=== PATIENT | female | born 1995 | race Caucasian/White ===

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

== ENCOUNTER → 2017-02-15 | Outpatient (CLI) | payer MEDICAID ==
--- NOTE | 2017-02-16 13:24 | Diagnostic Imaging Report ---
OB ultrasound. INDICATION: survey. COMPARISON: 11/28/2016. FINDINGS: heart rate is 152 beats per minutes. The placenta is anterior. There is no placenta previa. The cervix is partially shadowed, but appears to be long and closed. The posterior fossa and lateral ventricles appear normal in size. There is normal appearance of the four-chamber view, stomach, cord insertion, and two umbilical arteries. No hydronephrosis or cystic renal mass. The bladder is visualized and the spine appears grossly unremarkable. growth parameters are all around 20 weeks and 2 days. When compared to first trimester ultrasound dating, currently of 19 weeks and 5 days. IMPRESSION: Completed survey. Appropriate interval growth. Dictated by: Dictated on workstation # [id number]
== END ==
LOC: RAD 12:33
PROVIDERS: ATTEND Family Medicine
DX: Z36 Encounter for antenatal screening of mother (principal); Z3A.18 18 weeks gestation of pregnancy
CPT/HCPCS: 76805

== ENCOUNTER 2017-06-09 02:12 | Outpatient (CLI) | payer MEDICAID ==
[~2017-06-09] VITALS: Ht 156.2 cm; Wt 80.7 kg
[2017-06-09 02:26] VITALS: BP 118/68
[2017-06-09 02:30] VITALS: BP 118/68
[2017-06-09 02:36] LABS: BILIRUBIN,URINE NEGATIVE (NEGATIVE); KETONES,URINE NEGATIVE (NEGATIVE); LEUKOCYTE ESTERASE ,URINE 2+ (NEGATIVE); NITRITE,URINE NEGATIVE (NEGATIVE); PH,URINE 7 (5-9); PROTEIN,URINE NEGATIVE (NEGATIVE); UROBILINOGEN,URINE NORMAL (NORMAL)
[2017-06-09 02:48] LABS: WBC,URINE 0-2 /HPF
[2017-06-09] MEDS ORDERED: CEPHALEXIN 250 MG (KEFLEX) CAP PO ONE (03:45)
[2017-06-09] MEDS ORDERED: CEPH-507 PO (03:47)
--- NOTE | 2017-06-12 12:54 | Physician Query-Final Dx ---
SYED FIERRO 06/12/17 1254: Clinic Account Progress/Dx Physician Query: Please give diagnosis Date of Service Jun 09, 2017 at 02:12 ZHANG ROLLINS MD 06/28/17 1850: Clinic Account Progress/Dx DIAGNOSIS: Diagnosis Third Trimester Abdominal pain Lower extremity swelling SYED FIERRO Jun 12, 2017 12:54 ZHANG ROLLINS MD Jun 28, 2017 18:50
[2017-06-27] MEDS ORDERED: IBUP-1773 PO (08:16)
[2017-06-27] MEDS ORDERED: FERR-74 PO (08:16)
== END 2017-06-09 04:10 | disposition home or self-care (01) ==
LOC: WSo 02:12 → LDRP 02:13 → WSo 04:10
PROVIDERS: ATTEND Family Medicine
DX: O99.89 Other specified diseases and conditions complicating pregnancy, childbirth and the puerperium (principal); R10.9 Unspecified abdominal pain; M79.89 Other specified soft tissue disorders; Z3A.36 36 weeks gestation of pregnancy
CPT/HCPCS: 81000; 87088; 99213

== ENCOUNTER 2017-06-23 02:01 | Outpatient (CLI) | payer MEDICAID ==
[~2017-06-23] VITALS: Ht 156.2 cm; Wt 81.6 kg
[~2017-06-23 02:01] MED LIST changes: +CEPH-507 PO
[2017-06-23 02:10] VITALS: BP 128/78
[2017-06-23 02:19] LABS: BILIRUBIN,URINE NEGATIVE (NEGATIVE); KETONES,URINE 1+ (NEGATIVE); LEUKOCYTE ESTERASE ,URINE 3+ (NEGATIVE); NITRITE,URINE NEGATIVE (NEGATIVE); PH,URINE 7 (5-9); PROTEIN,URINE 2+ (NEGATIVE); UROBILINOGEN,URINE NORMAL (NORMAL)
[2017-06-23 02:27] LABS: WBC,URINE 25-50 /HPF
--- NOTE | 2017-06-26 11:21 | Physician Query-Final Dx ---
SYED FIERRO 06/26/17 1120: Clinic Account Progress/Dx Physician Query: Please give diagnosis Date of Service Jun 23, 2017 at 02:01 ARUN WILKES MD 06/27/17 0834: Clinic Account Progress/Dx DIAGNOSIS: Diagnosis 38 weeks gestation Leaking fluid, no evidence of SROM on exam SYED FIERRO Jun 26, 2017 11:20 ARUN WILKES MD Jun 27, 2017 08:34
== END 2017-06-23 04:50 | disposition home or self-care (01) ==
LOC: WSo 02:01 → LDRP 02:03 → WSo 04:50
PROVIDERS: ATTEND Family Medicine
DX: Z34.83 Encounter for supervision of other normal pregnancy, third trimester (principal)
CPT/HCPCS: 81000; 87088; 99214

== ENCOUNTER 2017-06-25 00:19 | Inpatient (IN) | payer MEDICAID ==
[2017-06-25] VITALS (53 sets, daily range): BP systolic 98–139; BP diastolic 51–90
[~2017-06-25] VITALS: Ht 154.9 cm; Wt 81.9 kg
[2017-06-25 03:29] LABS: BILIRUBIN,URINE NEGATIVE (NEGATIVE); KETONES,URINE NEGATIVE (NEGATIVE); LEUKOCYTE ESTERASE ,URINE 1+ (NEGATIVE); NITRITE,URINE NEGATIVE (NEGATIVE); PH,URINE 7 (5-9); PROTEIN,URINE 1+ (NEGATIVE); UROBILINOGEN,URINE NORMAL (NORMAL)
[2017-06-25] MEDS ORDERED: fentaNYL INJECTION 100 MCG/2 ML AMP IVP PRN (03:30)
[2017-06-25] MEDS ORDERED: SUFENTA 0.6MCG/ML BUPIVA 0.125 100 ML ONE (05:31)
[2017-06-25] MEDS ORDERED: D5 LR IV SOLUTION 1,000 ML IV SCH (05:33)
[2017-06-25] MEDS ORDERED: LACTATED RINGERS 1,000 ML IV ONE ×3 (06:15→08:00)
[2017-06-25 06:16] LABS: BASOPHILS % (AUTO) 0 % (0-10); EOSINOPHILS # (AUTO) 0.3 10^3/uL (0.0-0.3); EOSINOPHILS % (AUTO) 2 % (0-10); LYMPHOCYTES # (AUTO) 1.3 X 10^3 (1.0-4.0); LYMPHOCYTES % (AUTO) 10 % (12-44); MEAN CORPUSCULAR HEMOGLOBIN 29 PG (25-34); MEAN CORPUSCULAR HGB CONC 34 G/DL (32-36); MEAN CORPUSCULAR VOLUME 85 FL (80-99); MEAN PLATELET VOLUME 11.3 FL (7.4-10.4); MONOCYTES % (AUTO) 7 % (0-12); NEUTROPHILS # (AUTO) 11.3 X 10^3 (1.8-7.8); NEUTROPHILS % (AUTO) 81 % (42-75); PLATELET COUNT 181 10^3/uL (130-400); RED BLOOD COUNT 3.95 10^6/uL (4.35-5.85); RED CELL DISTRIBUTION WIDTH 14.4 % (10.0-14.5); WHITE BLOOD COUNT 13.9 10^3/uL (4.3-11.0)
[2017-06-25] MEDS ORDERED: LACTATED RINGERS 1,000 ML IV SCH (07:15)
[2017-06-25] MEDS ORDERED: METOCLOPRAMIDE INJ 10 MG/2 ML (REGLAN) IV PRN (07:15)
[2017-06-25] MEDS ORDERED: ONDANSETRON 4 MG/2 ML (SDV) Z0FRAN IV PRN (07:15)
[2017-06-25] MEDS ORDERED: NALOXONE 0.4 MG/ML 1 ML (NARCAN) VIAL IV PRN ×2 (07:15)
[2017-06-25] MEDS ORDERED: EPIDURAL (SUFENTA 0.6MCG/ML BUPIVA 0.125%) 100 ML BAG EPI SCH (07:15)
[2017-06-25] MEDS ORDERED: diphenhydrAMINE 50 MG/ML INJ (BENADRYL) IV PRN (07:15)
--- NOTE | 2017-06-25 08:54 | Diagnostic Imaging Report ---
INDICATION: Chest pain with . COMPARISON: None available. FINDINGS: The heart is enlarged, compatible with advanced . Perihilar central vascular indistinctness could relate to early interstitial pulmonary edema. No pulmonic consolidations or pleural effusions. No pneumothorax. IMPRESSION: 1. Cardiomegaly is compatible with advanced . Mild perihilar vascular indistinctness can be seen with early interstitial pulmonary edema. However, there is no josiah pulmonary edema or pleural effusions. Dictated by: Dictated on workstation # [id number]
--- NOTE | 2017-06-25 09:19 | History & Physical-OB ---
OB - Chief Complaint & HPI Date/Time Date of Admission: Date of Admission: Jun 25, 2017 at 5:32 am Time Seen by Provider: 08:45 Chief Complaint/History OB-Reason for Admission/Chief: Onset of Labor Hx : 3 Hx Para: 2 Expected Date of Delivery: Jul 07, 2017 Gestational Age in Weeks: 38 Gestational Age in Days: 2 History of Labs A neg, antibody neg, RI, HIV/HepB/RPR neg. GC/chlamydia neg. 1 hour glucola neg. GBS neg. Allergies and Home Medications Allergies Coded Allergies: amoxicillin (Verified Allergy, Mild, HIVES, 06/09/17) clavulanic acid (Verified Allergy, Mild, HIVES, 06/09/17) Home Medications Vit #76/Iron,Carb/FA 1 Each Tablet, 1 EACH PO DAILY, (Reported) OB - History Hx of Present Care: Yes Ultrasounds: Normal mid trimester US Obstetrical Complications: None Medical Complications: None Obstetrical History Hx : 3 Hx Para: 2 Hx # Term Pregnancies: 2 Hx # Pregnancies: 0 Number of Living Children: 2 Hx Termination: No Hx Total # of Abortions (Spona: 0 Hx Multiple Gestation: No Hx Ectopic : No Hx Stillbirth: No Hx Complication: No Hx Induced Hypertens: No Hx Maternal Gestational Diabet: No Hx Hemorrhage: No Delivery History Hx Dystocia: No Hx Forceps Assisted Delivery: No Hx Vacuum Extraction Assisted: No Hx Placenta Abnormality: No Hx Distress: No Hx Large For Gestational Age I: No Hx Small for Gestational Age I: No Hx Section: No Hx Vaginal Delivery Post C-Sec: No Hx Blood Disorders: No Adverse Rxn to Tranfusion: No Patient Past Medical History 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 Social History/Family History HIV/AIDS: No Recent Infectious Disease Expo: No Alcohol Use: Denies Use Recreational Drug Use: No Smoking Cessation: Current every day smoker Immunizations Hepatitis A: Yes Hepatitis B: Yes Tetanus Booster (TDap): Less than 5yrs Date of Influenza Vaccine: Sep 02, 2015 Rubella: immune GBS Status: Negative HBsAG: Negative OB - Admission Exam Physical Exam Date Seen by Provider: Jun 25, 2017 Time Seen by Provider: 08:45 Vitals: Vital Signs 06/25/17 06/25/17 06/25/17 06/25/17 01:00 07:56 08:20 08:25 Temp 99.3 Pulse 88 Resp 18 B/P (MAP) 108/66 Pulse Ox 98 O2 Delivery Room Air HEENT: NCAT Heart: Rhythm Normal (no murmur, regular rate) Lungs: Clear, Equal Abdomen: Gravid Extremities: Normal Cervical Dilatation: 5cm Membranes: Intact Labs Laboratory Tests Test 06/25/17 02:00 06/25/17 05:58 Range/Units Urine Color YELLOW Urine Clarity CLOUDY H Urine pH 7 5-9 Urine Specific [place] 1.010 L 1.016-1.022 Urine Protein 1+ H NEGATIVE Urine Glucose (UA) 3+ H NEGATIVE Urine Ketones NEGATIVE NEGATIVE Urine Nitrite NEGATIVE NEGATIVE Urine Bilirubin NEGATIVE NEGATIVE Urine Urobilinogen NORMAL NORMAL MG/DL Urine Leukocyte Esterase 1+ H NEGATIVE Urine RBC (Auto) 1+ H NEGATIVE Urine RBC RARE /HPF Urine WBC 2-5 /HPF Urine Squamous Epithelial Cells 2-5 /HPF Urine Crystals PRESENT H /LPF Urine Amorphous Sediment LARGE ODETTE PHOSPHATE H /LPF Urine Bacteria FEW H /HPF Urine Casts NONE /LPF Urine Mucus NEGATIVE /LPF Urine Culture Indicated YES White Blood Count 13.9 H 4.3-11.0 10^3/uL Red Blood Count 3.95 L 4.35-5.85 10^6/uL Hemoglobin 11.4 L 11.5-16.0 G/DL Hematocrit 34 L 35-52 % Mean Corpuscular Volume 85 80-99 FL Mean Corpuscular Hemoglobin 29 25-34 PG Mean Corpuscular Hemoglobin Concent 34 32-36 G/DL Red Cell Distribution Width 14.4 10.0-14.5 % Platelet Count 181 130-400 10^3/uL Mean Platelet Volume 11.3 H 7.4-10.4 FL Neutrophils (%) (Auto) 81 H 42-75 % Lymphocytes (%) (Auto) 10 L 12-44 % Monocytes (%) (Auto) 7 0-12 % Eosinophils (%) (Auto) 2 0-10 % Basophils (%) (Auto) 0 0-10 % Neutrophils # (Auto) 11.3 H 1.8-7.8 X 10^3 Lymphocytes # (Auto) 1.3 1.0-4.0 X 10^3 Monocytes # (Auto) 1.0 0.0-1.0 X 10^3 Eosinophils # (Auto) 0.3 0.0-0.3 10^3/uL Basophils # (Auto) 0.0 0.0-0.1 10^3/uL OB - Assessment/Plan/Diagnosis Assessment Assessment: active labor, other (chest pain) Plan Other Plan 1. Onset of labor at 38 weeks- expectant management 2. Chest pressure after epidural- EKG with some inverted t waves, no ST elevation or clear evidence of TX, troponin pending. CXR with no mediastinal widening or lung abnormalities. Blood pressure normal and equal in both arms. Exam unremarkable and chest pressure resolved by the time of finishing this note. Copy Copies To 1: ZHANG ROLLINS MD, BETHANY N MD Jun 25, 2017 9:19 am
[2017-06-25] MEDS ORDERED: OXYTOCIN/NORMAL SALINE 500 ML IV ONE (10:31)
--- NOTE | 2017-06-25 12:08 | OB Labor & Delivery Record ---
Vag Delivery Note Vag Delivery Note Date of Delivery: 06/25/17 Preoperative Diagnosis: Mariluz tristan a (20 /Para 3 / 2, Gestational Age (wks)38with 2 days Postoperative Diagnosis: Same Surgeon: ARUN WILKES Steam Box Hand: Rosio Doran, MS3 Anesthesia: Epidural Delivery Type: Findings: Viable male infant, apgars 8/9, weight 5#8 Lacerations: none Intact placenta with 3 vessel cord. No nuchal cord, body cord or shoulder dystocia Estimated Blood Loss: 200 ml Complications: None Condition: Stable Description of Procedure: The patient is a 22 yo who presented in active labor. She was admitted and informed consent was obtained. Her labor course was remarkable for chest pain (see H&P) She progressed to complete dilatation and began to push. She was then set up for delivery. The 's head was delivered atraumatically in the NELLY position. The shoulders and remainder of the 's body were then delivered without difficulty. Upon delivery, the head was held below the level of the perineum and the mouth and nares were bulb suctioned. The was vigorous and was placed on maternal abdomen. The cord was doubly clamped and cut and the infant was handed off to the pediatric staff. An intact placenta with 3-vessel cord delivered via Dominic and there was found to be minimal bleeding.~ Vigorous fundal massage was performed and the fundus was found to be firm. IV oxytocin was given. Examination of the vagina and perineum revealed no lacerations. Mom reported chest pressure again immediately after delivery- her O2 sat was 99, HR 85, BP normal. She denied difficulty breathing/ shortness of breath, felt her throat was scratchy and dry causing her to cough. After several large coughs, she reported resolution of her chest pressure, but continued with scratchy throat and intermittent cough. Due to recurrent chest pain, STAT EKG and repeat troponin ordered and given the cough and repeat episode of chest pressure, STAT CTA chest also ordered. Mother stable in delivery suite awaiting tests/results. Vitals - Labs Vital Signs - I&O Vital Signs 06/25/17 06/25/17 06/25/17 06/25/17 09:05 09:55 10:15 10:45 Temp 99.6 Pulse 92 Resp 18 B/P (MAP) 121/63 Pulse Ox 96 O2 Delivery Room Air O2 Flow Rate 10.00 Labs Laboratory Tests 06/25/17 02:00: Urine Color YELLOW, Urine Clarity CLOUDYH, Urine pH 7, Urine Specific [place] 1.010L, Urine Protein 1+H, Urine Glucose (UA) 3+H, Urine Ketones NEGATIVE, Urine Nitrite NEGATIVE, Urine Bilirubin NEGATIVE, Urine Urobilinogen NORMAL, Urine Leukocyte Esterase 1+H, Urine RBC (Auto) 1+H, Urine RBC RARE, Urine WBC 2- 5, Urine Squamous Epithelial Cells 2-5, Urine Crystals PRESENTH, Urine Amorphous Sediment LARGE ODETTE PHOSPHATEH, Urine Bacteria FEWH, Urine Casts NONE , Urine Mucus NEGATIVE, Urine Culture Indicated YES 06/25/17 05:58: White Blood Count 13.9H, Red Blood Count 3.95L, Hemoglobin 11.4L, Hematocrit 34L , Mean Corpuscular Volume 85, Mean Corpuscular Hemoglobin 29, Mean Corpuscular Hemoglobin Concent 34, Red Cell Distribution Width 14.4, Platelet Count 181, Mean Platelet Volume 11.3H, Neutrophils (%) (Auto) 81H, Lymphocytes (%) (Auto) 10L, Monocytes (%) (Auto) 7, Eosinophils (%) (Auto) 2, Basophils (%) (Auto) 0, Neutrophils # (Auto) 11.3H, Lymphocytes # (Auto) 1.3, Monocytes # (Auto) 1.0, Eosinophils # (Auto) 0.3, Basophils # (Auto) 0.0 06/25/17 09:22: Troponin I < 0.30 06/25/17 11:52: ARUN WILKES MD Jun 25, 2017 12:08 pm
[2017-06-25] MEDS ORDERED: OXYTOCIN/NORMAL SALINE 500 ML IV SCH (12:16)
[2017-06-25] MEDS ORDERED: BENZOCAINE/MENTHOL (DERMOPLAST) 56 ML CAN TP PRN (12:30)
[2017-06-25] MEDS ORDERED: IOHEXOL 350 MG/ML 150 ML (OMNIPAQUE 350) VIAL IV ONE ×2 (12:30)
[2017-06-25] MEDS ORDERED: WITCH HAZEL(TUCKS) 40 EA JAR TOP PRN (12:30)
[2017-06-25 12:31] LABS: ALANINE AMINOTRANSFERASE 7 U/L (0-55); ALBUMIN 3.2 GM/DL (3.2-4.5); ANION GAP 11 MMOL/L (5-14); ASPARTATE AMINO TRANSFERASE 12 U/L (5-34); BILIRUBIN,TOTAL 0.6 MG/DL (0.1-1.0); BLOOD UREA NITROGEN 4 MG/DL (7-18); BUN/CREATININE RATIO 7; CALCIUM 8.7 MG/DL (8.5-10.1); CARBON DIOXIDE 19 MMOL/L (21-32); CHLORIDE 104 MMOL/L (98-107); CREATININE SERUM 0.61 MG/DL (0.60-1.30); GFR ESTIMATED > 60; GLUCOSE 117 MG/DL (70-105); POTASSIUM 3.9 MMOL/L (3.6-5.0); SODIUM 134 MMOL/L (135-145); TOTAL PROTEIN 6.4 GM/DL (6.4-8.2)
[2017-06-25] MEDS: IBUPROFEN 600 MG (MOTRIN) TAB PO SCH ×2 (13:11→19:13)
--- NOTE | 2017-06-25 13:15 | Diagnostic Imaging Report ---
PROCEDURE: CT angiography of the chest with contrast. TECHNIQUE: Multiple contiguous axial images were obtained through the chest after uneventful bolus administration of intravenous contrast. Reconstructed CTA MIP acquisitions were also performed. INDICATION: Coughing and shortness of breath status post delivery. COMPARISON: None available. FINDINGS: Vasculature: No pulmonary emboli. No CT evidence of pulmonary hypertension or right ventricular strain. Thoracic aorta is normal in caliber. No aortic dissection or pseudoaneurysm. Heart and mediastinum: Visualized thyroid is normal. No supraclavicular, axillary, or intra-thoracic lymphadenopathy. Heart is on the upper limits of normal in size which is compatible with recent status. No pericardial effusion. Pleura: No pleural effusion or pneumothorax. Lungs and airway: No endoluminal lesion in the trachea or central bronchi. No pulmonary mass, nodule or consolidation. Upper abdomen: Allowing for the phase of contrast, no acute abnormality in the upper abdomen is seen. Musculoskeletal: No concerning osseous lesion. IMPRESSION: 1. No acute cardiopulmonary process. Specifically, no pulmonary emboli or acute aortic syndrome. Dictated by: Dictated on workstation # [id number]
[2017-06-25] MEDS: CATHETER FLUSH 10 ML SYR IV SCH ×2 (13:33→14:00)
[2017-06-25] MEDS ORDERED: CATHETER FLUSH 10 ML SYR IV SCH (14:00)
[2017-06-26] VITALS (7 sets, daily range): BP systolic 116–138; BP diastolic 74–92
[2017-06-26] MEDS: IBUPROFEN 600 MG (MOTRIN) TAB PO SCH ×4 (01:15→18:00)
[2017-06-26] MEDS: DOCUSATE SODIUM 100 MG (COLACE) CAP PO SCH ×3 (01:16→20:06)
[2017-06-26 07:14] LABS: BASOPHILS % (AUTO) 0 % (0-10); EOSINOPHILS # (AUTO) 0.1 10^3/uL (0.0-0.3); EOSINOPHILS % (AUTO) 1 % (0-10); LYMPHOCYTES # (AUTO) 0.9 X 10^3 (1.0-4.0); LYMPHOCYTES % (AUTO) 8 % (12-44); MEAN CORPUSCULAR HEMOGLOBIN 29 PG (25-34); MEAN CORPUSCULAR HGB CONC 33 G/DL (32-36); MEAN CORPUSCULAR VOLUME 87 FL (80-99); MEAN PLATELET VOLUME 11.5 FL (7.4-10.4); MONOCYTES # (AUTO) 0.6 X 10^3 (0.0-1.0); MONOCYTES % (AUTO) 5 % (0-12); NEUTROPHILS # (AUTO) 10.2 X 10^3 (1.8-7.8); NEUTROPHILS % (AUTO) 86 % (42-75); PLATELET COUNT 154 10^3/uL (130-400); RED BLOOD COUNT 3.71 10^6/uL (4.35-5.85); RED CELL DISTRIBUTION WIDTH 14.6 % (10.0-14.5); WHITE BLOOD COUNT 11.9 10^3/uL (4.3-11.0)
[2017-06-26] MEDS: PRENATAL VITAMIN 1 EA TAB PO SCH (09:08)
--- NOTE | 2017-06-26 09:29 | Anesthesia-Regional Post-Op ---
Regional Patient Condition Mental Status: Alert, Oriented x3 Circulation: Same as Pre-Op Headache: Absent Sensation: Full Recovery Motor Block: Absent Post Op Complications Complications None Follow Up Care/Instructions Patient Instructions None needed. Anesthesia/Patient Condition Patient is doing well, no complaints, stable vital signs, no apparent adverse anesthesia problems. No complications reported per nursing. MING ZARAGOZA CRNA Jun 26, 2017 09:29
--- NOTE | 2017-06-26 13:48 | Progress Note (SOAP) ---
Subjective Subjective/Events-last exam Mother having alot of cramping pain. Normal lochia with small clots. Denies dizziness, chest pain or shortness of breath. Tolerating PO diet and ambulation Review of Systems Date Seen by Provider: Jun 26, 2017 Time Seen by Provider: 13:48 Objective Exam Last Set of Vital Signs Vital Signs Date Time Temp Pulse Resp B/P (MAP) Pulse Ox O2 Delivery O2 Flow Rate FiO2 06/26/17 12:46 98.0 95 18 132/92 99 Room Air 06/25/17 09:05 10.00 Capillary Refill : I&O Bad tableGeneral: Alert, Oriented X3 Lungs: Clear to Auscultation, Normal Air Movement Heart: Regular Rate, No Murmurs Abdomen: Normal Bowel Sounds, Soft, Other (Fundus firm below umbilicus + mild tenderness) Extremities: Other (2+ pitting edema) Neuro: Other (Normal LE patellar reflex) Results/Procedures Lab Laboratory Tests 06/26/17 06:55: White Blood Count 11.9H, Red Blood Count 3.71L, Hemoglobin 10.6L, Hematocrit 32L , Mean Corpuscular Volume 87, Mean Corpuscular Hemoglobin 29, Mean Corpuscular Hemoglobin Concent 33, Red Cell Distribution Width 14.6H, Platelet Count 154, Mean Platelet Volume 11.5H, Neutrophils (%) (Auto) 86H, Lymphocytes (%) (Auto) 8L, Monocytes (%) (Auto) 5, Eosinophils (%) (Auto) 1, Basophils (%) (Auto) 0, Neutrophils # (Auto) 10.2H, Lymphocytes # (Auto) 0.9L, Monocytes # (Auto) 0.6, Eosinophils # (Auto) 0.1, Basophils # (Auto) 0.0 Microbiology 06/25/17 Urine Culture - Preliminary, Resulted Assessment/Plan Assessment/Plan Plan 22 yo G3 now P3 delivered male infant via , PPD#1 Plan - Add T#3 for pain control, patient is bottle feeding, Encourage ambulation and alternating Tylenol with Motrin - Hemoglobin stable - Plan to d/c tomorrow with - F/u w/ Gault in 6 weeks Diagnosis/Problems: Clinical Quality Measures DVT/VTE Risk/Contraindication: Risk Factor Score Per Nursin RFS Level Per Nursing on Admit: 2=Moderate ZHANG ROLLINS MD Jun 26, 2017 13:48
[2017-06-26] MEDS: APAP 300 MG/CODEINE 30 MG (TYLENOL #3) TAB PO PRN ×2 (14:42→23:02)
[2017-06-27] MEDS: IBUPROFEN 600 MG (MOTRIN) TAB PO SCH ×2 (02:01→08:51)
[2017-06-27] MEDS ORDERED: IBUP-1773 PO ×2 (08:16)
[2017-06-27] MEDS ORDERED: FERR-74 PO ×2 (08:16)
[2017-06-27] MEDS ORDERED: TETANUS,DIPTH,PERTUSS P/F (BOOSTRIX) 0.5 ML VIAL IM ONE ×2 (08:18→09:00)
--- NOTE | 2017-06-27 08:19 | Discharge Summary ---
Diagnosis/Chief Complaint Date of Admission Jun 25, 2017 at 5:32 am Date of Discharge Jun 27, 2017 Admission Diagnosis Admission Diagnosis SROM at 38w2d Active labor A negative blood type RI GBS neg Discharge Diagnosis s/p spontaneous vaginal delivery with no lacerations Chest pain- negative EKG x 2, troponin x 2 and CTA chest, resolved with no intervention, vital signs and oxygen saturation unremarkable throughout A negative RI Mild asymptomatic anemia- iron sulfate daily Chief Complaint/HPI Chief Complaint/HPI 22 yo G3 now P3 presented to L&D after gush of fluid outpatient and found to be in active labor at 38w2d. Discharge Summary-Simple/Stand Procedures Spontaneous vaginal delivery Discharge Physical Examination Allergies: Coded Allergies: amoxicillin (Verified Allergy, Mild, HIVES, 06/09/17) clavulanic acid (Verified Allergy, Mild, HIVES, 06/09/17) Vitals & I&Os Vital Sign - Last 12Hours Date Time Temp Pulse Resp B/P (MAP) Pulse Ox O2 Delivery O2 Flow Rate FiO2 06/26/17 23:33 97.3 67 18 118/74 98 06/26/17 19:38 Room Air 06/25/17 09:05 10.00 General Appearance: Alert, No Acute Distress Abdominal: Other (fundus firm at umbilicus) Hospital Course See final discharge diagnosis. Labs Laboratory Tests Test 06/25/17 09:22 06/25/17 11:52 06/26/17 06:55 Range/Units Troponin I < 0.30 < 0.30 <0.30 NG/ML Sodium Level 134 L 135-145 MMOL/L Potassium Level 3.9 3.6-5.0 MMOL/L Chloride Level 104 98-107 MMOL/L Carbon Dioxide Level 19 L 21-32 MMOL/L Anion Gap 11 5-14 MMOL/L Blood Urea Nitrogen 4 L 7-18 MG/DL Creatinine 0.61 0.60-1.30 MG/DL Estimat Glomerular Filtration Rate > 60 BUN/Creatinine Ratio 7 Glucose Level 117 H 70-105 MG/DL Calcium Level 8.7 8.5-10.1 MG/DL Total Bilirubin 0.6 0.1-1.0 MG/DL Aspartate Amino Transf (AST/SGOT) 12 5-34 U/L Alanine Aminotransferase (ALT/SGPT) 7 0-55 U/L Alkaline Phosphatase 172 H 40-136 U/L Total Protein 6.4 6.4-8.2 GM/DL Albumin 3.2 3.2-4.5 GM/DL White Blood Count 11.9 H 4.3-11.0 10^3/uL Red Blood Count 3.71 L 4.35-5.85 10^6/uL Hemoglobin 10.6 L 11.5-16.0 G/DL Hematocrit 32 L 35-52 % Mean Corpuscular Volume 87 80-99 FL Mean Corpuscular Hemoglobin 29 25-34 PG Mean Corpuscular Hemoglobin Concent 33 32-36 G/DL Red Cell Distribution Width 14.6 H 10.0-14.5 % Platelet Count 154 130-400 10^3/uL Mean Platelet Volume 11.5 H 7.4-10.4 FL Neutrophils (%) (Auto) 86 H 42-75 % Lymphocytes (%) (Auto) 8 L 12-44 % Monocytes (%) (Auto) 5 0-12 % Eosinophils (%) (Auto) 1 0-10 % Basophils (%) (Auto) 0 0-10 % Neutrophils # (Auto) 10.2 H 1.8-7.8 X 10^3 Lymphocytes # (Auto) 0.9 L 1.0-4.0 X 10^3 Monocytes # (Auto) 0.6 0.0-1.0 X 10^3 Eosinophils # (Auto) 0.1 0.0-0.3 10^3/uL Basophils # (Auto) 0.0 0.0-0.1 10^3/uL Discharge Instructions to patient/family Please see electonic discharge instructions given to patient. Discharge Medications Reviewed and agree with Discharge Medication list on patient's Discharge Instruction sheet Clinical Quality Measures DVT/VTE Risk/Contraindication: Risk Factor Score Per Nursin RFS Level Per Nursing on Admit: 2=Moderate Copy Copies To 1: ZHANG ROLLINS MD, BETHANY N MD Jun 27, 2017 8:19 am
--- NOTE | 2017-06-27 08:19 | Discharge Instructions ---
Discharge Inst-Women's Serv Depart Medications New, Converted or Re-Newed RX: Transmitted to Pharmacy New Medications: Ferrous Sulfate (Ferrous Sulfate) 325 Mg Tablet 325 MG PO DAILY, #30 TAB 0 Refills Ibuprofen (Ibuprofen) 600 Mg Tablet 600 MG PO Q6H PRN for PAIN-MILD TO MODERATE, #60 TAB Continued Medications: Vit #76/Iron,Carb/FA (Pnv 29-1 Tablet) 1 Each Tablet 1 EACH PO DAILY, TAB Follow Up/Instructions Goal/Follow Up: Follow up with Dr. Almazan in 6 weeks for visit. Activity Activity: Activity as Tolerated (avoid strenuous activity x 6 weeks) Driving Instructions: You May Drive Nothing Inside Vagina: No Douching, No [place], No Tampons Diet Discharge Diet: Regular Diet Symptoms to Report to : Swelling Increased, Pain Increased, Fever Over 101 Degrees F, Pain/Pressure in Chest, Pain/Pressure in Jaw, Vaginal Bleeding Increase, Cramps in Feet or Legs, Vaginal Discharge Foul, Dizziness/Fainting, Nausea/Vomiting, Shortness of Breath For Any Problems or Questions: Contact Your Physician Copies To 1: ZHANG ALMAZAN MD,ARUN Rae MD Jun 27, 2017 08:19
[2017-06-27 08:45] VITALS: BP 116/67
[2017-06-27] MEDS: PRENATAL VITAMIN 1 EA TAB PO SCH (08:51)
[2017-06-27] MEDS: DOCUSATE SODIUM 100 MG (COLACE) CAP PO SCH (08:51)
[2017-06-27 13:05] VITALS: BP 116/67
== END 2017-06-27 13:05 | disposition home or self-care (01) | DRG 775 ==
LOC: WSo 00:19 → LDRP 00:19 → WSo 05:32 → LDRP 05:32
PROVIDERS: ADMIT Family Medicine; ATTEND Family Medicine
PROC: 10E0XZZ Delivery of Products of Conception, External Approach (ICD-10-PCS; principal; 2017-06-25)
DX: O99.333 Smoking (tobacco) complicating pregnancy, third trimester (principal); F17.210 Nicotine dependence, cigarettes, uncomplicated; R07.89 Other chest pain; O99.03 Anemia complicating the puerperium; D64.9 Anemia, unspecified; Z3A.38 38 weeks gestation of pregnancy; Z37.0 Single live birth; Z23 Encounter for immunization
CPT/HCPCS: 36415; 71010; 71275; 80053; 81000; 83033; 84484; 85025; 86850; 86900; 86901; 87088; 90715; 93005; 99212

== ENCOUNTER 2020-09-09 12:11 | Emergency (ER) | payer SELFPAY ==
[~2020-09-09] VITALS: Ht 154 cm; Wt 79.0 kg
[~2020-09-09 12:11] MED LIST changes: -FERR-74 PO; +FERR325T18 PO
--- NOTE | 2020-09-09 12:50 | ED Abdominal Pain ---
General Chief Complaint: Female Reproductive Stated Complaint: 17 WKS -PRESSURE Source of Information: Patient Exam Limitations: No Limitations History of Present Illness Date Seen by Provider: Sep 09, 2020 Time Seen by Provider: 12:50 Initial Comments Female who is 17 weeks' gestation to ER with c/o pelvic pressure since monday. . Follow-up with Dr. Wilkes. She's been having some pelvic pain since Monday (today is Monday). She called primary care Kris who advised her pelvic rest and bed rest. Has had vaginal spotting Timing/Duration: 1 Week Severity/Quality: Moderate Radiation: No Radiation Activities at Onset: None Associated Symptoms: Denies Symptoms Allergies and Home Medications Allergies Coded Allergies: amoxicillin (Verified Allergy, Mild, HIVES, 06/09/17) clavulanic acid (Verified Allergy, Mild, HIVES, 06/09/17) Home Medications Acetaminophen with Codeine 1 Each Tablet, 1 EACH PO Q4H PRN for PAIN-MODERATE (5-7) Prescribed by: MAT CEJA on 09/09/20 1410 Clindamycin HCl 300 Mg Capsule, 300 MG PO BID Prescribed by: MAT CEJA on 09/09/20 1409 Ferrous Sulfate 325 Mg Tablet, 325 MG PO DAILY Prescribed by: ARUN WILKES on 06/27/17 0816 Ibuprofen 600 Mg Tablet, 600 MG PO Q6H PRN for PAIN-MILD TO MODERATE Prescribed by: ARUN WILKES on 06/27/17 0816 Vit #76/Iron,Carb/FA 1 Each Tablet, 1 EACH PO DAILY, (Reported) Patient Home Medication List Home Medication List Reviewed: Yes Review of Systems Review of Systems Constitutional: see HPI; No chills, No fever EENTM: No Symptoms Reported Cardiovascular: No Symptoms Reported Gastrointestinal: See HPI Genitourinary: No Symptoms Reported Musculoskeletal: no symptoms reported Skin: no symptoms reported Psychiatric/Neurological: No Symptoms Reported Past Pvpaunb-Huaoqc-Vuafli Hx Patient Social History Type Used: Cigarettes Recent Foreign Travel: No Contact w/Someone Who Travel: No Recent Hopitalizations: No Immunizations Up To Date Tetanus Booster (TDap): Less than 5yrs PED Vaccines UTD: No Date of Influenza Vaccine: Sep 02, 2015 Seasonal Allergies Seasonal Allergies: No Past Medical History Surgeries: Yes (mole excision ) Respiratory: No Cardiac: No Neurological: No Reproductive Disorders: No HIV/AIDS: No Genitourinary: No Gastrointestinal: No Musculoskeletal: No Endocrine: No HEENT: Yes (wax buildup req removal and frequently causes [place] ) Loss of Vision: Denies Hearing Impairment: Hard of Hearing Cancer: No Psychosocial: No Integumentary: No Blood Disorders: No Adverse Reaction/Blood Tranf: No Family Medical History Patient reports no known family medical history. Physical Exam Vital Signs Vital Signs - First Documented 09/09/20 12:20 Temp 36.6 Pulse 99 Resp 24 B/P (MAP) 112/75 (87) Capillary Refill : Height/Weight/BMI Height: 5'1.00" Weight: 180lbs. 8.0oz. 81.571618ow; 34.1 BMI Method: General Appearance: WD/WN, no apparent distress Respiratory: no respiratory distress, no accessory muscle use Gastrointestinal: normal bowel sounds, non tender, soft Extremities: normal range of motion Pelvic: other (with tracie medical student and female nursing executive argelia pelvic exam done showing large amount of frothy whithish discharge. No bleeding. cervix tilted and os not visualized. ) Neurologic/Psychiatric: alert, normal mood/affect Skin: normal color, warm/dry Progress/Results/Core Measures Results/Orders Lab Results Laboratory Tests Test 09/09/20 12:57 09/09/20 13:05 Range/Units Urine Color YELLOW Urine Clarity CLEAR Urine pH 7.0 5-9 Urine Specific [place] 1.015 L 1.016-1.022 Urine Protein NEGATIVE NEGATIVE Urine Glucose (UA) 3+ H NEGATIVE Urine Ketones NEGATIVE NEGATIVE Urine Nitrite POSITIVE H NEGATIVE Urine Bilirubin NEGATIVE NEGATIVE Urine Urobilinogen 2.0 < = 1.0 MG/DL Urine Leukocyte Esterase NEGATIVE NEGATIVE Urine RBC (Auto) NEGATIVE NEGATIVE Urine RBC NONE /HPF Urine WBC 0-2 /HPF Urine Squamous Epithelial Cells 5-10 /HPF Urine Crystals NONE /LPF Urine Bacteria MODERATE H /HPF Urine Casts NONE /LPF Urine Mucus NEGATIVE /LPF Urine Culture Indicated YES White Blood Count 6.6 4.3-11.0 10^3/uL Red Blood Count 4.10 3.80-5.11 10^6/uL Hemoglobin 12.2 11.5-16.0 g/dL Hematocrit 35 35-52 % Mean Corpuscular Volume 84 80-99 fL Mean Corpuscular Hemoglobin 30 25-34 pg Mean Corpuscular Hemoglobin Concent 35 32-36 g/dL Red Cell Distribution Width 13.6 10.0-14.5 % Platelet Count 174 130-400 10^3/uL Mean Platelet Volume 10.2 9.0-12.2 fL Immature Granulocyte % (Auto) 1 % Neutrophils (%) (Auto) 70 42-75 % Lymphocytes (%) (Auto) 17 12-44 % Monocytes (%) (Auto) 10 0-12 % Eosinophils (%) (Auto) 2 0-10 % Basophils (%) (Auto) 1 0-10 % Neutrophils # (Auto) 4.6 1.8-7.8 10^3/uL Lymphocytes # (Auto) 1.1 1.0-4.0 10^3/uL Monocytes # (Auto) 0.7 0.0-1.0 10^3/uL Eosinophils # (Auto) 0.2 0.0-0.3 10^3/uL Basophils # (Auto) 0.0 0.0-0.1 10^3/uL Immature Granulocyte # (Auto) 0.0 0.0-0.1 10^3/uL Micro Results Microbiology 09/09/20 Genital Culture, Resulted Pending 09/09/20 Wet Prep - Final, Resulted My Orders Orders - MAT CEJA APRN Cbc With Automated Diff (09/09/20 12:42) Ua Culture If Indicated (09/09/20 12:42) Rh Immune Globulin Rhophylac (09/09/20 12:57) Rhogam Administration (09/09/20 12:57) Wet Prep (09/09/20 12:59) Genital Culture (09/09/20 12:59) Urine Culture (09/09/20 12:57) Ceftriaxone For Im Use (Rocephin For Im (09/09/20 13:30) Azithromycin Tablet (Zithromax Tablet) (09/09/20 13:30) Lidocaine 1% Inj 20 Ml (Xylocaine 1% Inj (09/09/20 13:30) Us Limited [id number] (09/09/20 12:42) Medications Given in ED Current Medications Medications Dose Ordered Sig/[place] Route Start Time Stop Time Status Last Admin Dose Admin Lidocaine HCl 2.1 ml ONCE ONCE INJ 09/09/20 13:30 09/09/20 13:31 DC 09/09/20 13:56 2.1 ML Vital Signs/I&O 09/09/20 12:20 Temp 36.6 Pulse 99 Resp 24 B/P (MAP) 112/75 (87) Diagnostic Imaging Diagonstic Imaging: Xray Comments NAME: RUTH BHATTI MED REC#: [id number] PT STATUS: REG ER : 1995 PHYSICIAN: MAT CEJA APRN ADMIT DATE: 09/09/20/ER Draft Date of Exam:09/09/20 LIMITED [id number] INDICATION: Pelvic pain and . There is no adnexal lesion. Placenta is posterior. No abruption or previa. The nondilated cervix is 3 cm in length. [place] gestation was in cephalic position. heart rate 132 bpm. IMPRESSION: No pathological finding revealed at Limited obstetrical exam. Dictated on workstation # [id number] Dict: 09/09/20 1410 Trans: 09/09/20 1415 [facility] [id number] Interpreted by: KRISTIN FIORE Electronically signed by: Departure Communication (Admissions) a negative blood type Impression Primary Impression: Cervicitis Disposition: HOME, SELF-CARE Condition: Stable Departure-Patient Inst. Decision time for Depature: 14:05 Referrals: YAO ELIZABETH DO (PCP) Primary Care Physician WES LOPEZ APRN (Family) Primary Care Physician Patient Instructions: Bacterial Vaginosis (DC) Add. Discharge Instructions: 1. Call Dr. Wilkes to make an appointment to be seen for follow-up. Pain medication as directed. Take the antibiotics as directed. All discharge instructions reviewed with patient and/or family. Voiced understanding. Scripts Acetaminophen with Codeine (Acetaminophen-Cod #3 Tablet) 1 Each Tablet 1 EACH PO Q4H PRN for PAIN-MODERATE (5-7) for 7 Days, #10 TAB Prov: MAT CEJA APRN 09/09/20 Clindamycin HCl (Clindamycin HCl) 300 Mg Capsule 300 MG PO BID, #14 CAP Prov: MAT CEJA APRN 09/09/20 Copy Copies To 1: ARUN WILKES MD, PETER J APRN Sep 09, 2020 12:50
[2020-09-09 13:02] LABS: BILIRUBIN,URINE NEGATIVE (NEGATIVE); CLARITY,URINE CLEAR; COLOR,URINE YELLOW; GLUCOSE, URINE (UA) 3+ (NEGATIVE); KETONES,URINE NEGATIVE (NEGATIVE); LEUKOCYTE ESTERASE ,URINE NEGATIVE (NEGATIVE); NITRITE,URINE POSITIVE (NEGATIVE); PROTEIN,URINE NEGATIVE (NEGATIVE)
[2020-09-09 13:14] LABS: BASOPHILS % (AUTO) 1 % (0-10); EOSINOPHILS # (AUTO) 0.2 10^3/uL (0.0-0.3); EOSINOPHILS % (AUTO) 2 % (0-10); HEMATOCRIT 35 % (35-52); HEMOGLOBIN 12.2 g/dL (11.5-16.0); LYMPHOCYTES # (AUTO) 1.1 10^3/uL (1.0-4.0); LYMPHOCYTES % (AUTO) 17 % (12-44); MEAN CORPUSCULAR HEMOGLOBIN 30 pg (25-34); MEAN CORPUSCULAR HGB CONC 35 g/dL (32-36); MEAN CORPUSCULAR VOLUME 84 fL (80-99); MEAN PLATELET VOLUME 10.2 fL (9.0-12.2); MONOCYTES # (AUTO) 0.7 10^3/uL (0.0-1.0); MONOCYTES % (AUTO) 10 % (0-12); NEUTROPHILS # (AUTO) 4.6 10^3/uL (1.8-7.8); NEUTROPHILS % (AUTO) 70 % (42-75); PLATELET COUNT 174 10^3/uL (130-400); WHITE BLOOD COUNT 6.6 10^3/uL (4.3-11.0)
[2020-09-09 13:15] LABS: BACTERIA,URINE MODERATE /HPF; WBC,URINE 0-2 /HPF
[2020-09-09] MEDS ORDERED: LIDOCAINE 1% INJ 20 ML 20 ML VIAL INJ ONE (13:30)
[2020-09-09] MEDS ORDERED: cefTRIAXone 1,000 MG/2.86 ml vial (IM ONLY) IM SCH (13:30)
[2020-09-09] MEDS ORDERED: AZITHROMYCIN 250 MG TAB (ZITHROMAX) PO SCH (13:30)
[2020-09-09] MEDS ORDERED: CLIN300C11 PO (14:09)
[2020-09-09] MEDS ORDERED: ACET1TAB43 PO (14:09)
--- NOTE | 2020-09-09 14:15 | Diagnostic Imaging Report ---
INDICATION: Pelvic pain and . There is no adnexal lesion. Placenta is posterior. No abruption or previa. The nondilated cervix is 3 cm in length. [place] gestation was in cephalic position. heart rate 132 bpm. IMPRESSION: No pathological finding revealed at Limited obstetrical exam. Dictated by: Dictated on workstation # [id number]
[2020-09-09 15:18] VITALS: BP 118/96
== END 2020-09-09 15:18 | disposition home or self-care (01) ==
LOC: EDUNIT# 12:11 → ER 12:13
DX: O26.892 Other specified pregnancy related conditions, second trimester (principal); O23.512 Infections of cervix in pregnancy, second trimester; Z3A.17 17 weeks gestation of pregnancy; Z88.1 Allergy status to other antibiotic agents
CPT/HCPCS: 36415; 76815; 81000; 85025; 87070; 87088; 87205; 87210

== ENCOUNTER 2020-12-07 12:00 | Outpatient (RCR) | payer MEDICAID ==
[~2020-12-07 12:00] MED LIST changes: +ACET1TAB43 PO; +CLIN300C12 PO
[2020-12-08] MEDS ORDERED: LIDOCAINE 1% INJ 20 ML 20 ML VIAL ONE (07:24)
[2020-12-08] MEDS ORDERED: HEParin (CATH LAB) 2,000 ML IV ONE (07:24)
[2020-12-08] MEDS ORDERED: NS IV 1000 ML 1,000 ML ONE (07:24)
== END 2021-03-07 | disposition home or self-care (01) ==
LOC: CARD 12:00
PROVIDERS: ATTEND Family Medicine
DX: O36.8330 Maternal care for abnormalities of the fetal heart rate or rhythm, third trimester, not applicable or unspecified (principal); Z3A.00 Weeks of gestation of pregnancy not specified
CPT/HCPCS: 93225; 93226

== ENCOUNTER 2021-01-27 18:28 | Outpatient (CLI) | payer MEDICAID ==
[~2021-01-27] VITALS: Ht 154.9 cm; Wt 86.0 kg
[2021-01-27 18:57] VITALS: BP 112/76
[2021-01-27 18:58] VITALS: BP 112/76
[2021-01-27 19:40] VITALS: BP 126/69
--- NOTE | 2021-01-28 08:01 | Physician Query-Final Dx ---
MARK HOOPER 01/28/21 0801: Clinic Account Progress/Dx Physician Query: Please give diagnosis Please include # weeks gestation Date of Service Jan 27, 2021 at 18:28 YAO ELIZABETH DO 01/29/21 1050: Clinic Account Progress/Dx DIAGNOSIS: Diagnosis 37 week GA decreased movement - reactive NST MARK HOOPER Jan 28, 2021 08:01 YAO ELIZABETH DO Jan 29, 2021 10:50
== END 2021-01-27 19:50 | disposition home or self-care (01) ==
LOC: WSo 18:28 → LDRP 18:28 → WSo 19:50
PROVIDERS: ATTEND Family Medicine
DX: O36.8130 Decreased fetal movements, third trimester, not applicable or unspecified (principal); Z3A.37 37 weeks gestation of pregnancy
CPT/HCPCS: 99213

== ENCOUNTER 2021-01-29 12:29 | Outpatient (CLI) | payer MEDICAID ==
[~2021-01-29] VITALS: Ht 154.9 cm; Wt 85.9 kg
[2021-01-29 12:58] LABS: HEMOGLOBIN 9.7 g/dL (11.5-16.0); MEAN PLATELET VOLUME 10.4 fL (9.0-12.2); WHITE BLOOD COUNT 9.6 10^3/uL (4.3-11.0)
[2021-01-29 13:13] VITALS: BP 108/58
[2021-01-29 13:24] LABS: ALANINE AMINOTRANSFERASE 12 U/L (0-55); ALBUMIN 3.1 GM/DL (3.2-4.5); ALKALINE PHOSPHATASE 130 U/L (40-136); BILIRUBIN,TOTAL 0.4 MG/DL (0.1-1.0); BUN/CREATININE RATIO 8; CALCIUM 8.4 MG/DL (8.5-10.1); CARBON DIOXIDE 17 MMOL/L (21-32); CHLORIDE 109 MMOL/L (98-107); CREATININE SERUM 0.62 MG/DL (0.60-1.30); GFR ESTIMATED > 60; GLUCOSE 105 MG/DL (70-105); POTASSIUM 3.5 MMOL/L (3.6-5.0); SODIUM 136 MMOL/L (135-145); TOTAL PROTEIN 5.9 GM/DL (6.4-8.2)
[2021-01-29 13:29] VITALS: BP 108/58
[2021-01-29 13:30] VITALS: BP 108/58
[2021-01-29 15:25] VITALS: BP 108/58
--- NOTE | 2021-02-01 08:17 | Physician Query-Final Dx ---
MARK HOOPER 02/01/21 0817: Clinic Account Progress/Dx Physician Query: Please give diagnosis Please include # weeks gestation Date of Service Jan 29, 2021 at 12:29 ARUN WILKES MD 02/01/21 1241: Clinic Account Progress/Dx DIAGNOSIS: Diagnosis Tachycardia Shortness of breath Third trimester 37 weeks gestation MARK HOOPER Feb 01, 2021 08:17 ARUN WILKES MD Feb 01, 2021 12:41
== END 2021-01-29 15:25 | disposition home or self-care (01) ==
LOC: WSo 12:29 → LDRP 12:30 → WSo 15:25
PROVIDERS: ATTEND Family Medicine
DX: O36.8330 Maternal care for abnormalities of the fetal heart rate or rhythm, third trimester, not applicable or unspecified (principal); Z3A.37 37 weeks gestation of pregnancy
CPT/HCPCS: 36415; 80053; 82570; 83880; 84156; 84443; 85027; 93005; 93306; 99213

== ENCOUNTER 2021-02-03 02:11 | Outpatient (CLI) | payer MEDICAID ==
[~2021-02-03] VITALS: Ht 154.9 cm; Wt 86.8 kg
[2021-02-03] VITALS (8 sets, daily range): BP systolic 88–116; BP diastolic 53–77
[2021-02-03 02:46] LABS: BILIRUBIN,URINE NEGATIVE (NEGATIVE); CLARITY,URINE SL CLOUDY; COLOR,URINE YELLOW; GLUCOSE, URINE (UA) 2+ (NEGATIVE); KETONES,URINE NEGATIVE (NEGATIVE); LEUKOCYTE ESTERASE ,URINE NEGATIVE (NEGATIVE); NITRITE,URINE NEGATIVE (NEGATIVE); PROTEIN,URINE NEGATIVE (NEGATIVE)
[2021-02-03 02:56] LABS: AMORPHOUS SEDIMENT,UR MOD AMOR PHOSPHATE /LPF; BACTERIA,URINE FEW /HPF; WBC,URINE RARE /HPF
--- NOTE | 2021-02-04 08:52 | Physician Query-Final Dx ---
Clinic Account Progress/Dx Physician Query: Please give diagnosis Please include # weeks gestation Date of Service Feb 03, 2021 at 02:11 MARK HOOPER Feb 04, 2021 08:52
== END 2021-02-03 09:55 | disposition home or self-care (01) ==
LOC: LDRP 02:11 → WSo 02:11
PROVIDERS: ATTEND Family Medicine
DX: O62.9 Abnormality of forces of labor, unspecified (principal); Z3A.00 Weeks of gestation of pregnancy not specified
CPT/HCPCS: 81000; 99213

== ENCOUNTER 2021-02-06 00:24 | Inpatient (IN) | payer MEDICAID ==
[2021-02-06] VITALS (44 sets, daily range): BP systolic 85–129; BP diastolic 46–71
[~2021-02-06] VITALS: Ht 157.5 cm; Wt 86.4 kg
[2021-02-06 00:53] LABS: BILIRUBIN,URINE NEGATIVE (NEGATIVE); CLARITY,URINE SL CLOUDY; COLOR,URINE YELLOW; GLUCOSE, URINE (UA) 1+ (NEGATIVE); KETONES,URINE NEGATIVE (NEGATIVE); LEUKOCYTE ESTERASE ,URINE NEGATIVE (NEGATIVE); NITRITE,URINE NEGATIVE (NEGATIVE); PROTEIN,URINE NEGATIVE (NEGATIVE)
[2021-02-06 01:12] LABS: BACTERIA,URINE TRACE /HPF
[2021-02-06] MEDS ORDERED: D5 LR IV SOLUTION 1,000 ML IV SCH (04:00)
[2021-02-06] MEDS ORDERED: D5 LR IV SOLUTION 1,000 ML IV ONE (04:00)
[2021-02-06] MEDS ORDERED: fentaNYL 2 mcg/ml BUPIVA 0.125 100 ML ONE (04:00)
[2021-02-06] MEDS ORDERED: MINERAL OIL CONCENTRATE 99.9% 15 ML UDC TOP PRN (04:00)
[2021-02-06] MEDS ORDERED: CATHETER FLUSH 10 ML SYR IV PRN (04:15)
[2021-02-06] MEDS ORDERED: NALOXONE 0.4 MG/ML 1 ML (NARCAN) VIAL IV PRN ×2 (04:15→06:00)
[2021-02-06] MEDS ORDERED: LACTATED RINGERS 1,000 ML IV ONE ×3 (04:15→06:00)
[2021-02-06] MEDS ORDERED: fentaNYL 2 mcg/ml BUPIVA 0.125 100 ML IV SCH (04:15)
[2021-02-06 04:26] LABS: BASOPHILS # (AUTO) 0.1 10^3/uL (0.0-0.1); BASOPHILS % (AUTO) 1 % (0-10); EOSINOPHILS # (AUTO) 0.3 10^3/uL (0.0-0.3); EOSINOPHILS % (AUTO) 2 % (0-10); HEMATOCRIT 30 % (35-52); HEMOGLOBIN 9.8 g/dL (11.5-16.0); LYMPHOCYTES # (AUTO) 1.8 10^3/uL (1.0-4.0); LYMPHOCYTES % (AUTO) 15 % (12-44); MEAN CORPUSCULAR HEMOGLOBIN 27 pg (25-34); MEAN CORPUSCULAR HGB CONC 33 g/dL (32-36); MEAN CORPUSCULAR VOLUME 81 fL (80-99); MEAN PLATELET VOLUME 10.9 fL (9.0-12.2); MONOCYTES # (AUTO) 0.7 10^3/uL (0.0-1.0); MONOCYTES % (AUTO) 6 % (0-12); NEUTROPHILS # (AUTO) 9.1 10^3/uL (1.8-7.8); NEUTROPHILS % (AUTO) 75 % (42-75); PLATELET COUNT 219 10^3/uL (130-400)
[2021-02-06] MEDS ORDERED: fentaNYL INJ 100 MCG/2 ML AMP ONE (05:16)
[2021-02-06] MEDS ORDERED: BUPIVACAINE 0.25% 30 ML (SENSORCAINE) VIAL ONE (05:50)
[2021-02-06] MEDS ORDERED: fentaNYL INJ 100 MCG/2 ML AMP INJ ONE (06:00)
[2021-02-06] MEDS ORDERED: CATHETER FLUSH 10 ML SYR IV SCH ×2 (06:00→14:00)
[2021-02-06] MEDS ORDERED: EPIDURAL (fentaNYL 2 MCG/ML BUPIVA 0.125%)100 ML BAG EPI PRN (06:00)
[2021-02-06] MEDS ORDERED: ONDANSETRON 4 MG/2 ML (SDV) Z0FRAN IV PRN (06:00)
[2021-02-06] MEDS ORDERED: OXYTOCIN PRE-MIX DRIP 500 ML IV ONE (06:23)
[2021-02-06] MEDS ORDERED: OXYTOCIN PRE-MIX DRIP 500 ML IV SCH ×2 (06:30→12:45)
--- NOTE | 2021-02-06 07:03 | History & Physical-OB ---
OB - Chief Complaint & HPI Date/Time Date of Admission: Date of Admission: Feb 06, 2021 at 05:29 Date seen by a Provider: Feb 06, 2021 Time Seen by a Provider: 06:45 Chief Complaint/History OB-Reason for Admission/Chief: Onset of Labor Hx : 4 Hx Para: 3 Expected Date of Delivery: Feb 18, 2021 Gestational Age in Weeks: 38 Gestational Age in Days: 2 Admission Nurse Assessment Rev: Yes History of Labs GBS negative Allergies and Home Medications Allergies Coded Allergies: amoxicillin (Verified Allergy, Mild, HIVES, 06/09/17) clavulanic acid (Verified Allergy, Mild, HIVES, 06/09/17) Home Medications Vit #76/Iron,Carb/FA 1 Each Tablet, 1 EACH PO DAILY, (Reported) Patient Home Medication List Home Medication List Reviewed: Yes OB - History Hx of Present Care: Yes Ultrasounds: Normal mid trimester US Obstetrical Complications: None Medical Complications: None Obstetrical History Hx Termination: No Hx Multiple Gestation: No Hx Stillbirth: No Hx Complication: No Hx Induced Hypertens: No Hx Maternal Gestational Diabet: No Delivery History Hx Dystocia: No Hx Large For Gestational Age I: No Hx Small for Gestational Age I: No Hx Section: No Hx Vaginal Delivery Post C-Sec: No Hx Blood Disorders: No Adverse Rxn to Tranfusion: No Patient Past Medical History 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 Social History/Family History 2nd Hand Smoke Exposure: Yes Immunizations Hepatitis A: Yes Hepatitis B: Yes Tetanus Booster (TDap): Less than 5yrs Date of Influenza Vaccine: Oct 03, 2020 OB - Admission Exam Physical Exam Vitals: Vital Signs 02/06/21 02/06/21 06:05 06:30 Temp 36.8 Pulse 85 Resp 18 B/P (MAP) 110/56 (74) Pulse Ox 95 O2 Delivery Room Air HEENT: Moist Membranes Heart: Rhythm Normal Cervical Dilatation: 4cm Effacement: 75% Station: -3 Membranes: Intact Heart Rate: 140's Accelerations: Accelerations Present Decelerations: No Decelerations Short Term Variability: Present Contractions on Admission: < 5 Minutes Apart Intensity: Moderate Labs Laboratory Tests Test 02/06/21 00:40 02/06/21 04:15 Range/Units Urine Color YELLOW Urine Clarity [place] Urine pH 7.0 5-9 Urine Specific [place] 1.015 L 1.016-1.022 Urine Protein NEGATIVE NEGATIVE Urine Glucose (UA) 1+ H NEGATIVE Urine Ketones NEGATIVE NEGATIVE Urine Nitrite NEGATIVE NEGATIVE Urine Bilirubin NEGATIVE NEGATIVE Urine Urobilinogen 0.2 < = 1.0 MG/DL Urine Leukocyte Esterase NEGATIVE NEGATIVE Urine RBC (Auto) NEGATIVE NEGATIVE Urine RBC NONE /HPF Urine WBC NONE /HPF Urine Squamous Epithelial Cells 10-25 H /HPF Urine Crystals NONE /LPF Urine Bacteria TRACE /HPF Urine Casts NONE /LPF Urine Mucus SMALL H /LPF Urine Culture Indicated NO White Blood Count 12.0 H 4.3-11.0 10^3/uL Red Blood Count 3.69 L 3.80-5.11 10^6/uL Hemoglobin 9.8 L 11.5-16.0 g/dL Hematocrit 30 L 35-52 % Mean Corpuscular Volume 81 80-99 fL Mean Corpuscular Hemoglobin 27 25-34 pg Mean Corpuscular Hemoglobin Concent 33 32-36 g/dL Red Cell Distribution Width 14.7 H 10.0-14.5 % Platelet Count 219 130-400 10^3/uL Mean Platelet Volume 10.9 9.0-12.2 fL Immature Granulocyte % (Auto) 1 % Neutrophils (%) (Auto) 75 42-75 % Lymphocytes (%) (Auto) 15 12-44 % Monocytes (%) (Auto) 6 0-12 % Eosinophils (%) (Auto) 2 0-10 % Basophils (%) (Auto) 1 0-10 % Neutrophils # (Auto) 9.1 H 1.8-7.8 10^3/uL Lymphocytes # (Auto) 1.8 1.0-4.0 10^3/uL Monocytes # (Auto) 0.7 0.0-1.0 10^3/uL Eosinophils # (Auto) 0.3 0.0-0.3 10^3/uL Basophils # (Auto) 0.1 0.0-0.1 10^3/uL Immature Granulocyte # (Auto) 0.1 0.0-0.1 10^3/uL OB - Assessment/Plan/Diagnosis Assessment Assessment: active labor (at 38w2d) Admission Dx 1. IUP at 38w2d gestation in labor Admission Status: Inpatient Order (span 2 midnights) Reason for Inpatient Admission: L&D Plan Plan: Expectant Management Induction Method: AROM Other Plan -epidural -pitocin APRIL HECTOR MD Feb 06, 2021 07:03
[2021-02-06] MEDS ORDERED: MEPIVACAINE (CARBOCAINE) 2% 50 ML VIAL ONE (07:23)
[2021-02-06] MEDS ORDERED: diphenhydrAMINE 50 MG/ML INJ (BENADRYL) ONE (09:25)
[2021-02-06] MEDS ORDERED: diphenhydrAMINE 50 MG/ML INJ (BENADRYL) IVP ONE (09:30)
--- NOTE | 2021-02-06 12:36 | OB Labor & Delivery Record ---
L&D History Date of Service Date of Service: Feb 06, 2021 History Expected Date of Delivery: Feb 18, 2021 Gestational Age in Weeks: 38 Hx : 4 Hx Para: 4 Complications Events: Routine care Operative Indications (Cesarea: N/A-Vaginal Delivery Intrapartal Events: None L&D Stage1 Stage One Onset of Labor - Date: Feb 06, 2021 Onset of Labor - Time: 02:00 Monitors and Tracing Monitor Mode: Internal Heart Rate: 110 Monitor Accelerations: Uniform Monitor Decelerations: None Station: -3 Physical Therapy Attendant Variability: Average (6-10) Short Term Variability: Present Presentation: Vertex Vital Signs VS - Last 72 Hours, by Label 02/06/21 02/06/21 02/06/21 02/06/21 00:41 01:00 04:00 05:00 Temp 36.7 36.7 Pulse 125 125 65 Resp 18 18 18 18 B/P (MAP) 118/70 (86) Pulse Ox 99 99 100 O2 Delivery Room Air Room Air Non Rebreather Room Air 02/06/21 02/06/21 02/06/21 02/06/21 05:51 05:53 05:56 06:00 Pulse 97 76 107 90 Resp 18 18 18 18 B/P (MAP) 110/70 (83) 104/56 (72) 85/46 (59) 116/71 (86) Pulse Ox 99 99 98 98 O2 Delivery Room Air Room Air Room Air Room Air 02/06/21 02/06/21 02/06/21 02/06/21 06:05 06:10 06:15 06:30 Temp 36.8 Pulse 100 76 116 85 Resp 18 18 18 18 B/P (MAP) 129/59 (82) 115/55 (75) 118/63 (81) 110/56 (74) Pulse Ox 97 96 98 95 O2 Delivery Room Air Room Air Room Air Room Air 02/06/21 02/06/21 02/06/21 02/06/21 06:45 07:00 07:15 07:30 Temp 36.8 Pulse 75 101 62 98 Resp 18 18 16 16 B/P (MAP) 104/59 (74) 102/55 (71) 100/58 (72) Pulse Ox 98 99 99 94 O2 Delivery Room Air Room Air Room Air Room Air 02/06/21 02/06/21 02/06/21 02/06/21 07:45 08:00 08:15 08:30 Pulse 71 73 67 60 B/P (MAP) 95/54 (68) 106/55 (72) 99/55 (70) 99/61 (74) Pulse Ox 98 96 97 O2 Delivery Room Air Room Air Room Air Room Air 02/06/21 02/06/21 02/06/21 02/06/21 08:45 09:00 09:15 09:30 Pulse 61 64 57 63 B/P (MAP) 107/56 (73) 103/64 (77) 104/54 (71) 114/60 (78) O2 Delivery Room Air Room Air Room Air Room Air 02/06/21 02/06/21 02/06/21 09:45 10:00 10:15 Temp 36.9 Pulse 67 55 71 Resp 16 B/P (MAP) 111/59 (76) 110/53 (72) 111/56 (74) O2 Delivery Room Air Room Air Room Air Signs of Distress by FHT Signs of Distress no Rupture of Membranes Amniotic Membrane Rupture Time: 0652 Amniotic Membrane Fluid Desc.: Clear Induction/Anesthesia Epidural Cath Placement - Time: 0540 L&D Stage2 Stage Two Stage II Date: Feb 06, 2021 Stage II Time: 12:18 Monitors and Tracing Monitor Mode: Internal Heart Rate: 110 Monitor Accelerations: Uniform Monitor Decelerations: Early Physical Therapy Attendant Variability: Average (6-10) Short Term Variability: Present Position: Left Occiput Anterior Presentation: Vertex Signs of Distress by FHT Signs of Distress no Cord Descript/Complications Cord Vessel Description: 3 Vessels Delivery Type Infant Delivery Method: Spontaneous Vaginal Anterior Shoulder: Left Episiotomy/Perineal Laceration Laceraction(s)/Extensions: No Condition of Delivery 1 minute Comment: 8 5 minute Comment: 9 Condition of Infant Condition of : Living Exam: No Observed Abnormalities Resuscitation Resuscitation: N/A - Spontaneous Resp L&D Stage3 Stage Three Stage III Date: Feb 06, 2021 Stage III Time: 12:21 Pictocin Pitocin Administration mu/min: 18 Pitocin ml/hr: 18 Pitocin Administration Comment: 0648 - Infusion increased Placenta Delivery Placenta Delivery: Spontaneous Delivery Summary Summary Estimated blood loss (mL): 200 Condition of Delivery Examined: Cervix Examined Post Hemorrhage: No Intervention Required none APRIL HECTOR MD Feb 06, 2021 12:36
[2021-02-06] MEDS ORDERED: MEASLES,MUMPS,RUBELLA 1 EA INJ SQ ONE (12:45)
[2021-02-06] MEDS ORDERED: BENZOCAINE/MENTHOL (DERMOPLAST) 60 ML CAN TP PRN (12:45)
[2021-02-06] MEDS ORDERED: WITCH HAZEL(TUCKS) 40 EA JAR TOP PRN (12:45)
[2021-02-06] MEDS ORDERED: TETANUS,DIPTH,PERTUSS P/F (BOOSTRIX) 0.5 ML VIAL IM ONE (12:45)
[2021-02-06] MEDS ORDERED: IBUPROFEN 600 MG (MOTRIN) TAB PO ONE (14:00)
[2021-02-06] MEDS: IBUPROFEN 600 MG (MOTRIN) TAB PO SCH ×2 (14:08→21:08)
[2021-02-06] MEDS: ACETAMINOPHEN 500 MG TAB (TYLENOL) PO SCH (18:52)
[2021-02-07] MEDS: DOCUSATE SODIUM 100 MG (COLACE) CAP PO SCH ×2 (00:58→10:37)
[2021-02-07] MEDS: ACETAMINOPHEN 500 MG TAB (TYLENOL) PO SCH ×3 (00:58→12:56)
[2021-02-07 01:00] VITALS: BP 103/59
[2021-02-07 01:30] LABS: BASOPHILS # (AUTO) 0.1 10^3/uL (0.0-0.1); BASOPHILS % (AUTO) 1 % (0-10); EOSINOPHILS # (AUTO) 0.3 10^3/uL (0.0-0.3); EOSINOPHILS % (AUTO) 3 % (0-10); HEMATOCRIT 27 % (35-52); HEMOGLOBIN 8.7 g/dL (11.5-16.0); LYMPHOCYTES # (AUTO) 1.6 10^3/uL (1.0-4.0); LYMPHOCYTES % (AUTO) 14 % (12-44); MEAN CORPUSCULAR HEMOGLOBIN 27 pg (25-34); MEAN CORPUSCULAR HGB CONC 32 g/dL (32-36); MEAN CORPUSCULAR VOLUME 84 fL (80-99); MEAN PLATELET VOLUME 10.7 fL (9.0-12.2); MONOCYTES # (AUTO) 0.9 10^3/uL (0.0-1.0); MONOCYTES % (AUTO) 8 % (0-12); NEUTROPHILS # (AUTO) 8.8 10^3/uL (1.8-7.8); NEUTROPHILS % (AUTO) 75 % (42-75); PLATELET COUNT 178 10^3/uL (130-400); WHITE BLOOD COUNT 11.7 10^3/uL (4.3-11.0)
[2021-02-07 04:30] VITALS: BP 95/50
[2021-02-07] MEDS: IBUPROFEN 600 MG (MOTRIN) TAB PO SCH ×2 (04:33→10:37)
[2021-02-07] MEDS ORDERED: PRENATAL VITAMIN 1 EA TAB PO SCH (07:00)
--- NOTE | 2021-02-07 07:56 | Discharge Summary ---
Diagnosis/Chief Complaint Date of Admission Feb 06, 2021 at 05:29 Date of Discharge Admission Diagnosis Admission Diagnosis 1. Intrauterine at term38 weeks Discharge Diagnosis 1. Intrauterine at term38 weeks Chief Complaint/HPI Chief Complaint/HPI 25-year-old 4 now term4 who initially presented to labor and delivery during the morning of February 06, 2021 and active labor. She was noted to be dilated to 5 cm with membranes intact. Her EDC is February 18, 2021. Her GBS status performed at 36 weeks gestation was noted to be negative Discharge Summary-OBS Procedures 1. Epidural per anesthesia 2. Spontaneous vaginal delivery Discharge Physical Examination Allergies: Coded Allergies: amoxicillin (Verified Allergy, Mild, HIVES, 06/09/17) clavulanic acid (Verified Allergy, Mild, HIVES, 06/09/17) Vitals & I&Os Intake and Output 02/07/21 00:00 Intake Total 2000 ml Output Total 100 ml Balance 1900 ml Vital Sign - Last 12Hours Date Time Temp Pulse Resp B/P (MAP) Pulse Ox O2 Delivery O2 Flow Rate FiO2 02/07/21 04:30 36.4 68 18 95/50 (65) Room Air 02/07/21 01:00 97 General Appearance: No Acute Distress Respiratory: Clear to Auscultation Cardiovascular: Regular Rate Abdominal: Soft (With uterus firm) Hospital Course Was the Problem List Reviewed?: Yes Following delivery patient underwent routine care orders. She had no complications during the remainder of hospital stay. She was noted to tolerate regular diet. She was ambulatory and had developed no shortness of breath or leg pain. She had Hg on admission 02/06/2021 9.8 compared to discharge hg of 8.7. She was felt ready for dismissal and all questions were answered. She will follow up with Dr. Lazaro in 6 weeks. Labs Laboratory Tests 02/07/21 01:15: White Blood Count 11.7H, Red Blood Count 3.25L, Hemoglobin 8.7L, Hematocrit 27L, Mean Corpuscular Volume 84, Mean Corpuscular Hemoglobin 27, Mean Corpuscular Hemoglobin Concent 32, Red Cell Distribution Width 14.8H, Platelet Count 178, Mean Platelet Volume 10.7, Immature Granulocyte % (Auto) 0, Neutrophils (%) (Auto) 75, Lymphocytes (%) (Auto) 14, Monocytes (%) (Auto) 8, Eosinophils (%) (Auto) 3, Basophils (%) (Auto) 1, Neutrophils # (Auto) 8.8H, Lymphocytes # (Auto) 1.6, Monocytes # (Auto) 0.9, Eosinophils # (Auto) 0.3, Basophils # (Auto) 0.1, Immature Granulocyte # (Auto) 0.1 Discharge Instructions to patient/family Please see electronic discharge instructions given to patient. Discharge Medications Reviewed and agree with Discharge Medication list on patient's Discharge Instruction sheet APRIL HECTOR MD Feb 07, 2021 07:56
--- NOTE | 2021-02-07 08:44 | Discharge Inst-Women's Service ---
Discharge Inst-Women's Serv Depart Medication/Instructions New, Converted or Re-Newed RX: Other Problems Reviewed?: Yes Consults/Follow Up Additional Follow Up: Yes (With Dr. Lazaro in 6 weeks) Activity Activity: Activity as Tolerated Nothing Inside Vagina: No [place] (For 6 weeks) Diet Discharge Diet: Regular Diet Return to The Hospital For: As below Symptoms to Report to : Bleeding Excessive, Fever Over 101 Degrees F, Vaginal Discharge Foul For Any Problems or Questions: Contact Your Physician APRIL HECTOR MD Feb 07, 2021 08:44
[2021-02-07 10:39] VITALS: BP 111/56
--- NOTE | 2021-02-07 12:51 | Anesthesia-Regional Post-Op ---
Regional Patient Condition Mental Status: Alert, Oriented x3 Circulation: Same as Pre-Op Headache: Absent Sensation: Full Recovery Motor Block: Absent Post Op Complications Complications None Follow Up Care/Instructions Patient Instructions None needed. Anesthesia/Patient Condition Patient is doing well, no complaints, stable vital signs, no apparent adverse anesthesia problems. No complications reported per nursing. AMARILIS MIRANDA CRNA Feb 07, 2021 12:51
== END 2021-02-07 14:26 | disposition home or self-care (01) | DRG 807 ==
LOC: WSo 00:24 → LDRP 00:25 → WSo 05:29 → LDRP 05:29
PROVIDERS: ADMIT Family Medicine; ATTEND Family Medicine
PROC: 10E0XZZ Delivery of Products of Conception, External Approach (ICD-10-PCS; principal; 2021-02-06)
PROC: 10907ZC Drainage of Amniotic Fluid, Therapeutic from Products of Conception, Via Natural or Artificial Opening (ICD-10-PCS; 2021-02-06)
DX: O80 Encounter for full-term uncomplicated delivery (principal); Z37.0 Single live birth; Z3A.38 38 weeks gestation of pregnancy
CPT/HCPCS: 36415; 81000; 85025; 86850; 86900; 86901; 99212